=== PATIENT | male | born 1995 | race Caucasian/White ===

== ENCOUNTER 2020-06-26 02:22 | Emergency (ER) | payer SELFPAY ==
[~2020-06-26] VITALS: Ht 188 cm; Wt 59.0 kg
[2020-06-26 03:05] VITALS: BP 124/77
[2020-06-26] MEDS ORDERED: DexAMETHasone SOD PHOS 10MG/1ML VIAL INJ IM ONE (03:15)
[2020-06-26] MEDS ORDERED: ALBUTEROL SULF HFA 90MCG INH 200DOSE IN SCH (06:00)
== END 2020-06-26 07:46 | disposition home or self-care (01) ==
LOC: ER 02:25
DX: J45.41 Moderate persistent asthma with (acute) exacerbation (principal); Z20.828 Contact with and (suspected) exposure to other viral communicable diseases
CPT/HCPCS: 36415; 71045; 87426; 96372; 99284; C9803; J1100; U0003